=== PATIENT | male | born 1980 | race Caucasian/White ===

== ENCOUNTER 2016-08-14 21:50 | Emergency (ER) | payer MEDICAID ==
[~2016-08-14] VITALS: Ht 175.3 cm; Wt 137.0 kg
[2016-08-14] MEDS ORDERED: KETOROLAC 60MG/2ML VIAL IM ONE (22:30)
[2016-08-14 22:42] VITALS: BP 142/88
== END 2016-08-14 23:42 | disposition home or self-care (01) ==
LOC: ER 22:49
DX: S60.222A Contusion of left hand, initial encounter (principal); K21.9 Gastro-esophageal reflux disease without esophagitis; F12.10 Cannabis abuse, uncomplicated; W23.0XXA Caught, crushed, jammed, or pinched between moving objects, initial encounter; Y93.89 Activity, other specified; Y99.9 Unspecified external cause status; Y92.89 Other specified places as the place of occurrence of the external cause
CPT/HCPCS: 29125; 73130; 96372; 99284; J1885

== ENCOUNTER 2017-04-05 08:49 | Emergency (ER) | payer MEDICAID ==
[~2017-04-05] VITALS: Ht 175.3 cm; Wt 134.0 kg
[2017-04-05 09:21] VITALS: BP 125/90
[2017-04-05] MEDS ORDERED: IBUPROFEN 600MG TABLET PO ONE (10:00)
== END 2017-04-05 12:15 | disposition home or self-care (01) ==
LOC: ER 09:19
DX: J20.9 Acute bronchitis, unspecified (principal); J98.11 Atelectasis; F12.10 Cannabis abuse, uncomplicated; Z88.8 Allergy status to other drugs, medicaments and biological substances
CPT/HCPCS: 71010; 99283; Z7610

== ENCOUNTER 2017-06-05 00:12 | Emergency (ER) | payer SELFPAY ==
[~2017-06-05] VITALS: Ht 175.3 cm; Wt 143.0 kg
[2017-06-05 00:42] VITALS: BP 117/88
== END 2017-06-05 06:24 | disposition left against medical advice (07) ==
LOC: ER 00:59
DX: Z53.21 Procedure and treatment not carried out due to patient leaving prior to being seen by health care provider (principal); E11.9 Type 2 diabetes mellitus without complications
CPT/HCPCS: 82962

== ENCOUNTER 2017-11-16 11:17 | Emergency (ER) | payer MEDICAID ==
[~2017-11-16] VITALS: Ht 175.3 cm; Wt 131.0 kg
[2017-11-16] MEDS ORDERED: KETOROLAC 60MG/2ML VIAL IM ONE (12:00)
[2017-11-16] MEDS ORDERED: HYDROCODONE/ACETAMINOPHEN 5/325MG TABLET PO ONE (12:00)
[2017-11-16] MEDS ORDERED: ONDANSETRON 4MG ODT PO ONE (12:00)
[2017-11-16] MEDS ORDERED: DIAZEPAM 5 MG TABLET PO ONE (12:00)
[2017-11-16 13:11] VITALS: BP 132/84
== END 2017-11-16 14:26 | disposition home or self-care (01) ==
LOC: ER 14:18
DX: M54.40 Lumbago with sciatica, unspecified side (principal); E66.01 Morbid (severe) obesity due to excess calories; E11.9 Type 2 diabetes mellitus without complications; K21.9 Gastro-esophageal reflux disease without esophagitis; Z88.1 Allergy status to other antibiotic agents; Z68.41 Body mass index [BMI] 40.0-44.9, adult
CPT/HCPCS: 96372; 99284; J1885; Q0162